=== PATIENT | female | born 1975 | race Caucasian/White ===

== ENCOUNTER → 2016-11-18 | Outpatient (CLI) | payer OTHER ==
[~2016-11-18] MED LIST: CEFTIN500 MG PO; IBUPROFEN800 MG PO; NEURONTIN 300300 MG PO; NORCO 7.5-3251 EACH PO; PENVEE K 500 M500 MG PO; PRILOSEC OTC20 MG PO; VITAMIN B12-FO1 EACH PO; ZESTORETIC 10-1 EACH PO
== END ==
LOC: RAD 12:26
DX: R06.02 Shortness of breath (principal); R07.89 Other chest pain
CPT/HCPCS: 71020

== ENCOUNTER → 2020-06-18 | Outpatient (CLI) | payer OTHER ==
[~2020-06-18] MED LIST changes: +KEFLEX CAP 500500 MG PO; +PYRIDIUM100 MG PO; +TESSALON PERLE100 MG PO; +VENTOLIN HFA 66.7 GM INH; +ZOFRAN ODT 4 MG4 MG SL
== END ==
LOC: HEART 5 05-24 11:30
DX: R07.9 Chest pain, unspecified (principal)

== ENCOUNTER → 2020-07-13 | Outpatient (CLI) | payer OTHER | LOC: KOH-I 10:26 | DX: R10.84 Generalized abdominal pain (principal) | CPT/HCPCS: 74176 ==

== ENCOUNTER 2020-07-16 12:38 | Emergency (ER) | payer OTHER ==
[~2020-07-16 12:38] MED LIST changes: -TESSALON PERLE100 MG PO; -VENTOLIN HFA 66.7 GM INH
[2020-07-16 14:02] LABS: HEMOGLOBIN 13.7 gm/dl (12.3-15.3); RED BLOOD COUNT 4.46 M/UL (4.00-5.10); WHITE BLOOD COUNT 10.1 K/UL (4.5-11.0)
[2020-07-16 14:25] LABS: BUN/CREATININE RATIO 16 (0-10)
== END 2020-07-16 17:10 | disposition home or self-care (01) ==
LOC: ER1 12:38
PROVIDERS: Physician Assistant
DX: M54.5 Low back pain (principal); R10.9 Unspecified abdominal pain; I10 Essential (primary) hypertension; Z87.39 Personal history of other diseases of the musculoskeletal system and connective tissue; Z90.710 Acquired absence of both cervix and uterus
CPT/HCPCS: 36415; 80053; 81001; 85025; 87086; 96374; 96375; 99284; J1885; J2405

== ENCOUNTER → 2020-09-17 | Outpatient (CLI) | payer OTHER ==
[~2020-09-17] MED LIST changes: +TESSALON PERLE100 MG PO; +VENTOLIN HFA 66.7 GM INH
== END ==
LOC: EMI 11:15
DX: M54.5 Low back pain (principal); M51.37 Other intervertebral disc degeneration, lumbosacral region
CPT/HCPCS: 72148

== ENCOUNTER 2020-12-16 19:00 | Emergency (ER) | payer OTHER ==
[~2020-12-16 19:00] MED LIST changes: -TESSALON PERLE100 MG PO; -VENTOLIN HFA 66.7 GM INH
[2020-12-16] MEDS ORDERED: TESSALON PERLE100 MG PO (20:49)
[2020-12-16] MEDS ORDERED: VENTOLIN HFA 66.7 GM INH (20:49)
== END 2020-12-16 21:01 | disposition home or self-care (01) ==
LOC: ER1 19:00
DX: J06.9 Acute upper respiratory infection, unspecified (principal); I10 Essential (primary) hypertension; K21.9 Gastro-esophageal reflux disease without esophagitis; G43.909 Migraine, unspecified, not intractable, without status migrainosus
CPT/HCPCS: 71045; 81001; 87086; 99283

== ENCOUNTER → 2020-12-20 | Outpatient (CLI) | payer OTHER ==
[~2020-12-20] MED LIST changes: +TESSALON PERLE100 MG PO; +VENTOLIN HFA 66.7 GM INH
== END ==
LOC: KOH-I 15:30
DX: R31.9 Hematuria, unspecified (principal)
CPT/HCPCS: 74176

== ENCOUNTER → 2021-01-23 | Outpatient (CLI) | payer OTHER | LOC: RAD 09:53 | DX: R10.11 Right upper quadrant pain (principal) | CPT/HCPCS: 74250 ==